=== PATIENT | female | born 1950 | race African-American/Black ===

== ENCOUNTER 2018-12-10 09:16 | Inpatient (IN) | payer OTHER | END 2018-12-12 16:18 | disposition left against medical advice (07) | LOC: YASAS 09:16 → Y6N 11:00 | DX: R01.2 Other cardiac sounds (principal); F11.20 Opioid dependence, uncomplicated ==

== ENCOUNTER 2019-01-21 10:37 | Inpatient (IN) | payer OTHER ==
[2019-01-21 11:05] VITALS: BMI 22.8
--- NOTE | 2019-01-21 12:40 | HP ---
COWS - Scale Resting Pulse: 0= [place] 80 or Below Sweatin= Chills/Flushing Restless Observation: 1= Difficult to Sit Still Pupil Size: 0= Normal to Room Light Bone or Joint Aches: 2= Severe Diffuse Aches Runny Nose/ Eye Tearin= Nasal Congestion GI Upset > 30mins: 2= Nausea/Diarrhea Tremor Observation: 2= Slight Tremor Visible Yawning Observation: 1= 1-2x During Session Anxiety or Irritability: 1=Feels Anxious/Irritable Goose Flesh Skin: 0=Smooth Skin COWS Score: 11 Admission ROS BHS - HPI Chief Complaint: I want to go back to my life when I was not using drugs Allergies/Adverse Reactions: Allergies Allergy/AdvReac Type Severity Reaction Status Date / Time atorvastatin [From Lipitor] AdvReac Intermediate muscle pain Verified 01/21/19 10:58 History of Present Illness: 68 yo woman here for detox from opiates - denies using cocaine (though urine tox + cocaine thinks mixed with heroin) and denies using alcohol. Patient here for detox 12/09/18 and left AMA but states she is sorry she did that and will complete treatment. She is in an outpatient program at [facility] receiving both psychiatric and rehab services but she still is using opiates, it was recommended she come in for detox. Not interested in methadone or suboxone. Denies overdose or black outs, no seizures. Exam Limitations: No Limitations - Ebola screening Have you traveled outside of the country in the last 21 days: No Have you had contact with anyone from an Ebola affected area: No - Review of Systems Constitutional: Chills, Loss of Appetite, Night Sweats, Changes in sleep EENT: reports: Tearing, Nose Congestion Respiratory: reports: No Symptoms reported Cardiac: reports: No Symptoms Reported GI: reports: Difficulty Swallowing, Poor Appetite, Poor Fluid Intake, Abdominal cramping : reports: No Symptoms Reported Musculoskeletal: reports: Back Pain, Muscle Pain Integumentary: reports: Other Neuro: reports: Headache, Tingling Endocrine: reports: No Symptoms Reported Hematology: reports: No Symptoms Reported Psychiatric: reports: Judgement Intact, Mood/Affect Appropiate, Anxious Other Systems: Reviewed and Negative Patient History - Patient Medical History Hx Anemia: No Hx Asthma: No Hx Chronic Obstructive Pulmonary Disease (COPD): No Hx Cancer: No Hx Cardiac Disorders: No Hx Congestive Heart Failure: No Hx Hypertension: No Hx Hypercholesterolemia: Yes (on meds) Hx Pacemaker: No HX Cerebrovascular Accident: No Hx Seizures: No Hx Diabetes: No Hx Gastrointestinal Disorders: No Hx Liver Disease: No Hx Genitourinary Disorders: No Hx Sexually Transmitted Disorders: No Hx Renal Disease (ESRD): No Hx Thyroid Disease: No Hx Human Immunodeficiency Virus (HIV): No Hx Hepatitis C: No Hx Depression: Yes (anxiety/depression sees psych on meds) Hx Suicide Attempt: Yes (in my 20's - hospitalized - slit wrists/took pills) Hx Bipolar Disorder: No Hx Schizophrenia: No Other Medical History: scoliosis, neck and back pain chronic; glaucoma - Patient Surgical History Past Surgical History: No Hx Neurologic Surgery: No Hx Cataract Extraction: Yes (bilateral 2013) Hx Cardiac Surgery: No Hx Lung Surgery: No Hx Breast Surgery: No Hx Breast Biopsy: No Hx Abdominal Surgery: Yes (ectopic ; ovarian cyst removal) Hx Appendectomy: No Hx Cholecystectomy: No Hx Genitourinary Surgery: No Hx Section: No Hx Orthopedic Surgery: Yes (back surgery not sure what kind - 1990s; two epidurals) Anesthesia Reaction: No - PPD History Previous Implant?: Yes Documented Results: Negative w/o proof Implanted On Prior [facility] Admission?: Yes PPD to be Administered?: Yes - Reproductive History Patient is a Female of Child Bearing Age (11 -55 yrs old): No - Smoking Cessation Smoking history: Current every day smoker Have you smoked in the past 12 months: Yes Aproximately how many cigarettes per day: 20 Hx Chewing Tobacco Use: No Initiated information on smoking cessation: Yes 'Breaking Loose' booklet given: 01/21/19 (give on floor) - Substance & Tx. History Hx Alcohol Use: No Hx Substance Use: Yes Substance Use Type: Heroin Hx Substance Use Treatment: Yes (detox, rehab) - Substances abused Heroin Substance route: Inhalation Frequency: Daily Amount used: 8-10 bags Age of first use: 15 Date of last use: 01/20/19 Non-Rx Methadone Substance route: Oral Frequency: 1-3 times last 30 days Amount used: 15mg Age of first use: 67 Date of last use: 01/20/19 Admission Physical Exam BHS - Vital Signs Vital Signs: Vital Signs - 24 hr 09/14/19 09/14/19 10:56 11:35 Temperature 97.2 F L 97.2 F L Pulse Rate 49 L 49 L Respiratory 18 18 Rate Blood Pressure 156/69 156/69 - Physical General Appearance: Yes: Nourished, Appropriately Dressed, Moderate Distress, Thin, Tremorous, Anxious HEENTM: Yes: EOMI, Hearing grossly Normal, Normocephalic, Normal Voice, Pharynx Normal Respiratory: Yes: Normal Breath Sounds, No Respiratory Distress Neck: Yes: No masses,lesions,Nodules, Supple Breast: Yes: Breast Exam Deferred Cardiology: Yes: Regular Rhythm, Regular Rate Abdominal: Yes: Flat, Soft Genitourinary: Yes: Within Normal Limits Back: Yes: Surgical Scar, Other (neck pain) Musculoskeletal: Yes: full range of Motion, Gait Steady, Back pain, Other (neck pain) Extremities: Yes: Normal Inspection, Non-Tender Neurological: Yes: Fully Oriented, Alert, Normal Mood/Affect, Normal Response Integumentary: Yes: Normal Color, Warm, Other (irritation right cheek area) Lymphatic: Yes: Within Normal Limits - Diagnostic (1) Opioid dependence with withdrawal Current Visit: Yes Status: Chronic (2) Chronic back pain Current Visit: Yes Status: Acute Qualifiers: Back pain location: low back pain Back pain laterality: bilateral Sciatica presence: without sciatica Qualified Code(s): M54.5 - Low back pain; G89.29 - Other chronic pain (3) Glaucoma Current Visit: Yes Status: Acute Qualifiers: Glaucoma type: unspecified Laterality: bilateral Qualified Code(s): H40.9 - Unspecified glaucoma (4) Nicotine dependence Current Visit: Yes Status: Acute Qualifiers: Nicotine product type: cigarettes Substance use status: uncomplicated Qualified Code(s): F17.210 - Nicotine dependence, cigarettes, uncomplicated (5) Substance induced mood disorder Current Visit: Yes Status: Acute (6) History of back surgery Current Visit: Yes Status: Chronic (7) Hypercholesterolemia Current Visit: Yes Status: Chronic (8) Scoliosis Current Visit: Yes Status: Chronic Qualifiers: Scoliosis type: idiopathic Spinal region: lumbar Cleared for Admission S - Detox or Rehab [facility] Level of Care: Medically Managed Detox Regimen/Protocol: Methadone Breathalyzer - Breathalyzer Breathalyzer: 0 Urine Drug Screen - Test Device Lot number: [id number] Expiration date: 05/31/21 - Control Is test valid?: Yes - Results Drug screen NEGATIVE: No Urine drug screen results: ANMOL-Cocaine, MOP-Opiates, OXY-Oxycodone, MTD- Methadone Inpatient Rehab Admission - Rehab Decision to Admit Inpatient rehab admission?: No
[2019-01-21] MEDS ORDERED: cloNIDine HCL 0.1 MG TABLET PO PRN (12:51)
[2019-01-21] MEDS ORDERED: BISMUTH SUBSALICYLATE 524 MG/30 ML UD PO PRN (12:51)
[2019-01-21] MEDS ORDERED: MAGNESIUM CITRATE 300 ML BOTTLE PO PRN (12:51)
[2019-01-21] MEDS ORDERED: MENTHOL/PHENOL 1 EACH UD MM PRN (12:51)
[2019-01-21] MEDS ORDERED: ACETAMINOPHEN 325 MG TABLET (FP) PO PRN ×2 (12:51)
[2019-01-21] MEDS ORDERED: IBUPROFEN 400 MG TABLET (FP) PO PRN (12:51)
[2019-01-21] MEDS ORDERED: MAG HYDROX/AL HYDROX/SIMETH 30 ML UNIT-DOSE CUP PO PRN (12:51)
[2019-01-21] MEDS ORDERED: MAGNESIUM HYDROX 2400MG/30ML ORAL SUSPENSION 30 ML CUP PO PRN (12:51)
[2019-01-21] MEDS ORDERED: METHOCARBAMOL 500 MG TABLET PO PRN (12:51)
[2019-01-21] MEDS ORDERED: METHADONE HCL 10 MG TABLET (FOR DETOX USE ONLY) PO ONE (13:45)
[2019-01-21] MEDS: NICOTINE 21 MG/24 HOURS TOPICAL PATCH TD SCH (14:17)
[2019-01-21] MEDS: LIDOCAINE 5% TOPICAL PATCH TP SCH (14:17)
[2019-01-21] MEDS: clonazePAM 0.5 MG TABLET PO PRN ×2 (14:25→22:11)
[2019-01-21] MEDS ORDERED: ATORVASTATIN CA 10 MG TABLET (FP) PO SCH (22:00)
[2019-01-21] MEDS ORDERED: ESCITALOPRAM OXALATE 10 MG TABLET (FP) PO ONE (22:00)
[2019-01-21] MEDS: PATIENT'S OWN MEDICATION (NON-FORMULARY) (Brimonidine Tartrate/Timolol [Combigan 0.2%-0.5% OU SCH (22:09)
[2019-01-21] MEDS: THIAMINE HCL 100 MG TABLET (FP) PO SCH (22:09)
[2019-01-21] MEDS: PATIENT'S OWN MEDICATION (NON-FORMULARY) (Simvastatin [Simvastatin] 10 MG) PO SCH (22:09)
[2019-01-21] MEDS: LIDOCAINE PATCH REMOVAL MC SCH (22:11)
[2019-01-21] MEDS: MELATONIN 5 MG TABLETS PO PRN (22:13)
[2019-01-22] MEDS ORDERED: METHADONE HCL 10 MG TABLET (FOR DETOX USE ONLY) ONE (09:42)
[2019-01-22] MEDS ORDERED: METHADONE HCL 5 MG TABLET (FOR DETOX USE ONLY) ONE (09:42)
[2019-01-22] MEDS ORDERED: METHADONE (DETOX) 20 MG, METHADONE (DETOX) 5 MG PO ONE (10:00)
--- NOTE | 2019-01-22 10:13 | CONSULT ---
[facility] Psychiatric Consult - Data Date of interview: 01/22/19 Admission source: [facility] Identifying data: Patient is a 68 year old female, without children, unemployed, domiciled, and is supported by [facility]. This is one of multiple admisssions for patient. Patient admitted to for opiate dependence. Substance Abuse History: Smoking Cessation. Smoking history: Current every day smoker. Have you smoked in the past 12 months: Yes. Aproximately how many cigarettes per day: 20. Hx Chewing Tobacco Use: No. Initiated information on smoking cessation: Yes. 'Breaking Loose' booklet given: 01/21/19 (give on floor ). - Substance & Tx. History. Hx Alcohol Use: No. Hx Substance Use: Yes. Substance Use Type: Heroin. Hx Substance Use Treatment: Yes (detox, rehab). - Substances abused. Heroin. Substance route: Inhalation. Frequency: Daily. Amount used: 8-10 bags. Age of first use: 15. Date of last use: 01/20/19. * * Non-Rx Methadone. Substance route: Oral. Frequency: 1-3 times last 30 days. Amount used: 15mg. Age of first use: 67. Date of last use: 01/20/19 Medical History: Hypercholesterolemia, back pain, scoliosis, bilateral cataract extraction in 2013, glaucoma Psychiatric History: Patient's first psychiatric contact was approximately 30 years ago after she had a suicide attempt (cutting wrist and overdose) and was admitted to [facility]. After discharged she saw an outpatient psychiatrist and was treated with zoloft but after several months she discontinued treatment. Ms. Sheffield is currently provided with outpatient psychiatric care at [facility]. She was diagnosed with depression and prescribed lexapro 10mg. At present patient denies depressive symptoms. Physical/Sexual Abuse/Trauma History: denies. Mental Status Exam - Mental Status Exam Alert and Oriented to: Time, Place, Person Cognitive Function: Good Patient Appearance: Well Groomed Mood: Euthymic Affect: Mood Congruent Patient Behavior: Cooperative Speech Pattern: Appropriate Voice Loudness: Normal Thought Process: Goal Oriented Thought Disorder: Not Present Hallucinations: Denies Suicidal Ideation: Denies Homicidal Ideation: Denies Insight/Judgement: Poor Sleep: Poorly Appetite: Fair Muscle strength/Tone: Normal Gait/Station: Normal Psychiatric Findings - Problem List ([place] 1, 2,3) (1) Depressive disorder Current Visit: Yes Status: Chronic (2) Opioid dependence with withdrawal Current Visit: Yes Status: Acute - Initial Treatment Plan Initial Treatment Plan: Psychoeducation provided. Detoxification in progress. Will order Lexapro 10mg HS. Benefits and side effects discussed. Verbal consent given.
[2019-01-22] MEDS: LIDOCAINE 5% TOPICAL PATCH TP SCH (10:16)
[2019-01-22] MEDS: PATIENT'S OWN MEDICATION (NON-FORMULARY) (Brimonidine Tartrate/Timolol [Combigan 0.2%-0.5% OU SCH ×2 (10:17→22:16)
[2019-01-22] MEDS: NICOTINE 21 MG/24 HOURS TOPICAL PATCH TD SCH (10:17)
[2019-01-22] MEDS: PRENATAL VITAMINS W/ FOLIC ACID TABLET (FP) PO SCH (10:17)
[2019-01-22] MEDS: clonazePAM 0.5 MG TABLET PO PRN ×2 (10:19→22:18)
--- NOTE | 2019-01-22 10:25 | PN ---
BHS COWS - Scale Resting Pulse: 0= [place] 80 or Below Sweatin= No chills or Flushing Restless Observation: 1= Difficult to Sit Still Pupil Size: 1= Pupils >than Normal Bone or Joint Aches: 2= Severe Diffuse Aches Runny Nose/ Eye Tearin= None GI Upset > 30mins: 0= None Tremor Observation of Outstretched Hands: 2= Slight Tremor Visible Yawning Observation: 0= None Anxiety or Irritability: 2=Irritable/Anxious Goose Flesh Skin: 0=Smooth Skin COWS Score: 8 BHS Progress Note (SOAP) Subjective: Patient c/o body aches, interrupted sleep, anxiety and mild restlessness. Objective: 01/22/19 10:24 Vital Signs Period Temp Pulse Resp BP Sys/Whaley Pulse Ox Last 24 Hr 97.2 F-98.1 F 49-60 10-18 124-156/56-88 PE alert and oriented x 3 skin warm and dry +perrla, eoms intact, pupils mildly dilated ext full rom, slight tremors visible anxious Assessment: 01/22/19 10:25 Opiod withdrawal sx Plan: continue detox labs pending monitor
[2019-01-22 10:59] LABS: ALBUMIN 2.8 g/dl (3.4-5.0); BILIRUBIN,TOTAL 0.3 mg/dL (0.2-1); BLOOD UREA NITROGEN 9.4 mg/dL (7-18); CALCIUM 8.7 mg/dL (8.5-10.1); CREATININE 0.7 mg/dL (0.55-1.3); POTASSIUM 3.8 mmol/L (3.5-5.1); TOT PROT 6.3 g/dl (6.4-8.2)
[2019-01-22 11:05] LABS: HEMATOCRIT 34.8 % (32.4-45.2); HEMOGLOBIN 11.1 GM/dL (10.7-15.3); MCH 27.7 pg (25.7-33.7); MEAN CELL VOLUME 86.7 fl (80-96); MEAN PLT VOLUME 8.6 fl (7.5-11.1); PLATELET COUNT 199 K/MM3 (134-434); RBC 4.01 M/mm3 (3.60-5.2); RDW 15.8 % (11.6-15.6); WHITE BLOOD COUNT 4.8 K/mm3 (4.0-10.0)
[2019-01-22] MEDS: CHOLECALCIFEROL (VIT D3) 1,000 UNIT (25 MCG) TABLET PO SCH (11:26)
[2019-01-22] MEDS: PATIENT'S OWN MEDICATION (NON-FORMULARY) (Simvastatin [Simvastatin] 10 MG) PO SCH (22:16)
[2019-01-22] MEDS: ESCITALOPRAM OXALATE 10 MG TABLET (FP) PO SCH (22:16)
[2019-01-22] MEDS: LIDOCAINE PATCH REMOVAL MC SCH (22:17)
[2019-01-22] MEDS: THIAMINE HCL 100 MG TABLET (FP) PO SCH (22:17)
[2019-01-23] MEDS ORDERED: COLLOIDAL OATMEAL 1 BAR EACH TP PRN (09:20)
--- NOTE | 2019-01-23 09:24 | PN ---
BHS COWS - Scale Resting Pulse: 0= [place] 80 or Below Sweatin= No chills or Flushing Restless Observation: 1= Difficult to Sit Still Pupil Size: 1= Pupils >than Normal Bone or Joint Aches: 1= Mild Discomfort Runny Nose/ Eye Tearin= Nasal Congestion GI Upset > 30mins: 1= Stomach Cramp Tremor Observation of Outstretched Hands: 1= Tremor [place], Not Seen Yawning Observation: 1= 1-2x During Session Anxiety or Irritability: 2=Irritable/Anxious Goose Flesh Skin: 0=Smooth Skin COWS Score: 9 BHS Progress Note (SOAP) Subjective: alert,irritable,anxious,interrupted sleep,pain in body Objective: 01/23/19 09:24 Vital Signs Temperature 97.9 F 01/23/19 09:09 Pulse Rate 58 L 01/23/19 09:09 Respiratory Rate 16 01/23/19 09:09 Blood Pressure 140/86 01/23/19 09:09 O2 Sat by Pulse Oximetry (%) Laboratory Last Values WBC 4.8 K/mm3 (4.0-10.0) 01/22/19 07:00 RBC 4.01 M/mm3 (3.60-5.2) 01/22/19 07:00 Hgb 11.1 GM/dL (10.7-15.3) 01/22/19 07:00 Hct 34.8 % (32.4-45.2) 01/22/19 07:00 MCV 86.7 fl (80-96) 01/22/19 07:00 MCH 27.7 pg (25.7-33.7) 01/22/19 07:00 MCHC 32.0 g/dl (32.0-36.0) 01/22/19 07:00 RDW 15.8 % (11.6-15.6) H 01/22/19 07:00 Plt Count 199 K/MM3 (134-434) 01/22/19 07:00 MPV 8.6 fl (7.5-11.1) 01/22/19 07:00 Sodium 142 mmol/L (136-145) 01/22/19 07:00 Potassium 3.8 mmol/L (3.5-5.1) 01/22/19 07:00 Chloride 105 mmol/L (98-107) 01/22/19 07:00 Carbon Dioxide 32 mmol/L (21-32) 01/22/19 07:00 Anion Gap 4 MMOL/L (8-16) L 01/22/19 07:00 BUN 9.4 mg/dL (7-18) 01/22/19 07:00 Creatinine 0.7 mg/dL (0.55-1.3) 01/22/19 07:00 Est GFR (CKD-EPI)AfAm 102.46 01/22/19 07:00 Est GFR (CKD-EPI)NonAf 88.40 01/22/19 07:00 Random Glucose 88 mg/dL (74-106) 01/22/19 07:00 Calcium 8.7 mg/dL (8.5-10.1) 01/22/19 07:00 Total Bilirubin 0.3 mg/dL (0.2-1) 01/22/19 07:00 AST 12 U/L (15-37) L 01/22/19 07:00 ALT 12 U/L (13-61) L 01/22/19 07:00 Alkaline Phosphatase 64 U/L (45-117) 01/22/19 07:00 Total Protein 6.3 g/dl (6.4-8.2) L 01/22/19 07:00 Albumin 2.8 g/dl (3.4-5.0) L 01/22/19 07:00 RPR Titer Nonreactive (NONREACTIVE) 01/22/19 07:00 Assessment: 01/23/19 09:24 withdrawal symptom Plan: continue detox methadone regimen
[2019-01-23] MEDS ORDERED: METHADONE HCL 10 MG TABLET (FOR DETOX USE ONLY) PO ONE (10:00)
[2019-01-23] MEDS: PATIENT'S OWN MEDICATION (NON-FORMULARY) (Brimonidine Tartrate/Timolol [Combigan 0.2%-0.5% OU SCH ×2 (10:23→22:12)
[2019-01-23] MEDS: NICOTINE 21 MG/24 HOURS TOPICAL PATCH TD SCH (10:23)
[2019-01-23] MEDS: PRENATAL VITAMINS W/ FOLIC ACID TABLET (FP) PO SCH (10:24)
[2019-01-23] MEDS: LIDOCAINE 5% TOPICAL PATCH TP SCH (10:24)
[2019-01-23] MEDS: AMMONIUM LACTATE 12% LOTION 225 GM BOTTLE TP SCH ×2 (10:38→22:13)
[2019-01-23] MEDS: CHOLECALCIFEROL (VIT D3) 1,000 UNIT (25 MCG) TABLET PO SCH (10:53)
[2019-01-23] MEDS: clonazePAM 0.5 MG TABLET PO PRN (11:42)
[2019-01-23] MEDS: ESCITALOPRAM OXALATE 10 MG TABLET (FP) PO SCH (22:12)
[2019-01-23] MEDS: THIAMINE HCL 100 MG TABLET (FP) PO SCH (22:12)
[2019-01-23] MEDS: PATIENT'S OWN MEDICATION (NON-FORMULARY) (Simvastatin [Simvastatin] 10 MG) PO SCH (22:13)
[2019-01-23] MEDS: LIDOCAINE PATCH REMOVAL MC SCH (22:13)
[2019-01-23] MEDS: MELATONIN 5 MG TABLETS PO PRN (22:14)
[2019-01-24] MEDS: clonazePAM 0.5 MG TABLET PO PRN ×2 (05:22→18:31)
[2019-01-24] MEDS: TRIMETHOBENZAMIDE HCL 200MG/2ML INJ IM PRN ×2 (08:40→17:26)
[2019-01-24] MEDS ORDERED: METHADONE DETOX 10 MG/1 ML [20ML VIAL] IM ONE (09:01)
[2019-01-24] MEDS ORDERED: METHADONE (DETOX) 10 MG, METHADONE (DETOX) 5 MG PO ONE (10:00)
[2019-01-24] MEDS ORDERED: DICYCLOMINE HCL 10 MG CAPSULE PO PRN (10:02)
--- NOTE | 2019-01-24 10:07 | PN ---
BHS COWS - Scale Resting Pulse: 0= [place] 80 or Below Sweatin= Chills/Flushing Restless Observation: 0= Sits Still Pupil Size: 0= Normal to Room Light Bone or Joint Aches: 2= Severe Diffuse Aches Runny Nose/ Eye Tearin= Nasal Congestion GI Upset > 30mins: 2= Nausea/Diarrhea Tremor Observation of Outstretched Hands: 2= Slight Tremor Visible Yawning Observation: 0= None Anxiety or Irritability: 2=Irritable/Anxious Goose Flesh Skin: 0=Smooth Skin COWS Score: 10 BHS Progress Note (SOAP) Subjective: sweats nausea vomiting Objective: 01/24/19 10:05 Vital Signs Temperature 97.9 F 01/24/19 09:01 Pulse Rate 55 L 01/24/19 09:01 Respiratory Rate 20 01/24/19 09:01 Blood Pressure 159/71 01/24/19 09:01 O2 Sat by Pulse Oximetry (%) Laboratory Tests 01/22/19 01/22/19 01/22/19 07:00 07:00 07:00 WBC 4.8 RBC 4.01 Hgb 11.1 Hct 34.8 MCV 86.7 MCH 27.7 MCHC 32.0 RDW 15.8 H Plt Count 199 MPV 8.6 Sodium 142 Potassium 3.8 Chloride 105 Carbon Dioxide 32 Anion Gap 4 L BUN 9.4 Creatinine 0.7 Est GFR (CKD-EPI)AfAm 102.46 Est GFR (CKD-EPI)NonAf 88.40 Random Glucose 88 Calcium 8.7 Total Bilirubin 0.3 AST 12 L ALT 12 L Alkaline Phosphatase 64 Total Protein 6.3 L Albumin 2.8 L RPR Titer Nonreactive labs noted aaox3 ambulating no acute distress Assessment: 01/24/19 10:05 withdrawals sx Plan: methadone 7.5mg IM x one ordered tigan IM prn zofran SL prn
[2019-01-24] MEDS: AMMONIUM LACTATE 12% LOTION 225 GM BOTTLE TP SCH ×2 (10:38→22:40)
[2019-01-24] MEDS: PRENATAL VITAMINS W/ FOLIC ACID TABLET (FP) PO SCH (10:39)
[2019-01-24] MEDS: PATIENT'S OWN MEDICATION (NON-FORMULARY) (Brimonidine Tartrate/Timolol [Combigan 0.2%-0.5% OU SCH ×2 (10:39→22:40)
[2019-01-24] MEDS: NICOTINE 21 MG/24 HOURS TOPICAL PATCH TD SCH (10:39)
[2019-01-24] MEDS: LIDOCAINE 5% TOPICAL PATCH TP SCH (10:39)
[2019-01-24] MEDS: CHOLECALCIFEROL (VIT D3) 1,000 UNIT (25 MCG) TABLET PO SCH (10:40)
[2019-01-24] MEDS: ONDANSETRON *ODT* 4 MG TABLET SL PRN ×2 (12:51→21:59)
[2019-01-24] MEDS: MELATONIN 5 MG TABLETS PO PRN (22:41)
[2019-01-24] MEDS: PATIENT'S OWN MEDICATION (NON-FORMULARY) (Simvastatin [Simvastatin] 10 MG) PO SCH (22:42)
[2019-01-24] MEDS: THIAMINE HCL 100 MG TABLET (FP) PO SCH (22:42)
[2019-01-24] MEDS: ESCITALOPRAM OXALATE 10 MG TABLET (FP) PO SCH (22:43)
[2019-01-24] MEDS: LIDOCAINE PATCH REMOVAL MC SCH (22:43)
[2019-01-25] MEDS: TRIMETHOBENZAMIDE HCL 200MG/2ML INJ IM PRN (01:26)
--- NOTE | 2019-01-25 09:34 | PN ---
S CIWA - CIWA Score Nausea/Vomitin-Mild Nausea/No Vomiting Muscle Tremors: 1-None Visible, but Walling Anxiety: 2 Agitation: 2 Paroxysmal Sweats: No Perspiration Orientation: 0-Oriented Tacttile Disturbances: 1-Very Mild Itch/Numbness Auditory Disturbances: 0-None Visual Disturbances: 0-None Headache: 1-Very Mild CIWA-Ar Total Score: 8 BHS Progress Note (SOAP) Subjective: alert,irritable,anxious,interrupted sleep,nausea,vomiting yesterday Objective: 01/25/19 09:32 Vital Signs Temperature 98.4 F 01/25/19 09:04 Pulse Rate 57 L 01/25/19 09:04 Respiratory Rate 18 01/25/19 09:04 Blood Pressure 168/78 01/25/19 09:04 O2 Sat by Pulse Oximetry (%) Assessment: 01/25/19 09:33 withdrawal symptom Plan: continue detox methadone regimen,discharge in am
[2019-01-25] MEDS ORDERED: METHADONE HCL 10 MG TABLET (FOR DETOX USE ONLY) PO ONE (10:00)
[2019-01-25] MEDS: LIDOCAINE 5% TOPICAL PATCH TP SCH (11:05)
[2019-01-25] MEDS: PRENATAL VITAMINS W/ FOLIC ACID TABLET (FP) PO SCH (11:05)
[2019-01-25] MEDS: NICOTINE 21 MG/24 HOURS TOPICAL PATCH TD SCH (11:05)
[2019-01-25] MEDS: CHOLECALCIFEROL (VIT D3) 1,000 UNIT (25 MCG) TABLET PO SCH (11:05)
[2019-01-25] MEDS: PATIENT'S OWN MEDICATION (NON-FORMULARY) (Brimonidine Tartrate/Timolol [Combigan 0.2%-0.5% OU SCH ×2 (11:09→23:06)
[2019-01-25] MEDS: AMMONIUM LACTATE 12% LOTION 225 GM BOTTLE TP SCH ×2 (11:09→23:02)
[2019-01-25] MEDS: ONDANSETRON *ODT* 4 MG TABLET SL PRN (11:40)
--- NOTE | 2019-01-25 18:32 | PN ---
[facility] Progress Note Note: Patient c/o continued nausea and vomiting. No diarrhea. States feels sick. Patient also requesting increase in sleep medication. Alert. Abd S/NT/ND/BS+ Pupils = 3 mm. + mild tremors of hands Lungs CTA. Vital Signs - 24 hr 01/24/19 01/25/19 01/25/19 20:55 00:30 06:00 Temperature 98.4 F 98.1 F Pulse Rate 69 74 Respiratory 18 18 18 Rate Blood Pressure 176/78 H 106/61 01/25/19 01/25/19 01/25/19 09:04 12:58 16:39 Temperature 98.4 F 97.9 F 97.9 F Pulse Rate 57 L 61 69 Respiratory 18 18 16 Rate Blood Pressure 168/78 152/79 158/85 Assessment: Protracted opiate withdrawal Plan: Extend methadone taper. Will consider a split dose for tomorrow. Discuss w/ patient and counselor rehab admission for minimum of 7 days.
[2019-01-25] MEDS ORDERED: METHADONE HCL 5 MG TABLET PO ONE (18:43)
[2019-01-25] MEDS ORDERED: PROCHLORPERAZINE MALEATE 5 MG TABLET PO PRN (18:44)
[2019-01-25] MEDS ORDERED: MELATONIN 5 MG TABLETS PO PRN (18:58)
[2019-01-25] MEDS: ESCITALOPRAM OXALATE 10 MG TABLET (FP) PO SCH (23:02)
[2019-01-25] MEDS: LIDOCAINE PATCH REMOVAL MC SCH (23:02)
[2019-01-25] MEDS: THIAMINE HCL 100 MG TABLET (FP) PO SCH (23:03)
[2019-01-25] MEDS: PATIENT'S OWN MEDICATION (NON-FORMULARY) (Simvastatin [Simvastatin] 10 MG) PO SCH (23:03)
[2019-01-26] MEDS ORDERED: METHADONE HCL 5 MG TABLET PO ONE ×2 (06:00→18:00)
[2019-01-26] MEDS ORDERED: METHADONE HCL 5 MG TABLET (FOR DETOX USE ONLY) PO ONE ×2 (06:00→10:00)
--- NOTE | 2019-01-26 08:37 | DS ---
[facility] Detox Discharge Summary Admission Date: 01/21/19 Discharge Date: 01/26/19 - History Present History: Opioid Dependence - Physical Exam Results Vital Signs: Vital Signs Temperature 97.5 F L 01/26/19 05:57 Pulse Rate 88 01/26/19 05:57 Respiratory Rate 18 01/26/19 05:57 Blood Pressure 155/99 01/26/19 05:57 O2 Sat by Pulse Oximetry (%) Pertinent Admission Physical Exam Findings: pt arrived in withdrawals Laboratory Tests 01/22/19 01/22/19 01/22/19 07:00 07:00 07:00 WBC 4.8 RBC 4.01 Hgb 11.1 Hct 34.8 MCV 86.7 MCH 27.7 MCHC 32.0 RDW 15.8 H Plt Count 199 MPV 8.6 Sodium 142 Potassium 3.8 Chloride 105 Carbon Dioxide 32 Anion Gap 4 L BUN 9.4 Creatinine 0.7 Est GFR (CKD-EPI)AfAm 102.46 Est GFR (CKD-EPI)NonAf 88.40 Random Glucose 88 Calcium 8.7 Total Bilirubin 0.3 AST 12 L ALT 12 L Alkaline Phosphatase 64 Total Protein 6.3 L Albumin 2.8 L RPR Titer Nonreactive today pt is aaox3 ambulating no acute distress - Treatment Hospital Course: Detox Protocol Followed, Detoxed Safely, Responded well, Discharged Condition Good, Rehab Referral Accepted Patient has Accepted a Rehab Referral to: referred to [facility] - Medication Discharge Medications: Ambulatory Orders Brimonidine Tartrate/Timolol [Combigan Eye Drops] 1 drop OU BID 12/10/18 Cholecalciferol (Vitamin D3) [Vitamin D3] 1,000 unit PO DAILY 12/10/18 Simvastatin 10 mg PO HS 12/10/18 Escitalopram Oxalate [Lexapro -] 10 mg PO HS 01/21/19 - Diagnosis (1) Chronic back pain Current Visit: Yes Status: Chronic Qualifiers: Back pain location: low back pain Back pain laterality: bilateral Sciatica presence: without sciatica Qualified Code(s): M54.5 - Low back pain; G89.29 - Other chronic pain (2) Glaucoma Current Visit: Yes Status: Acute Qualifiers: Glaucoma type: unspecified Laterality: bilateral Qualified Code(s): H40.9 - Unspecified glaucoma (3) Nicotine dependence Current Visit: Yes Status: Acute Qualifiers: Nicotine product type: cigarettes Substance use status: uncomplicated Qualified Code(s): F17.210 - Nicotine dependence, cigarettes, uncomplicated (4) Opioid dependence with withdrawal Current Visit: Yes Status: Chronic (5) Substance induced mood disorder Current Visit: Yes Status: Acute (6) Depressive disorder Current Visit: Yes Status: Chronic (7) History of back surgery Current Visit: Yes Status: Chronic (8) Hypercholesterolemia Current Visit: Yes Status: Chronic (9) Scoliosis Current Visit: Yes Status: Chronic Qualifiers: Scoliosis type: idiopathic Spinal region: lumbar - AMA Did Patient Leave Against Medical Advice: No
[2019-01-26 09:18] VITALS: BP 158/100; PULSE 87; TEMP 97.7
--- NOTE | 2019-01-26 09:54 | PN ---
[facility] Progress Note Note: pt states she is not feeling well and feels weak, lethargic and sickly. Pt received her last dose of 5mg of methadone this am. pt will be sent out to our ED at [place] for evaluation. report given to Dr. Yoo. pt was also make aware that today is her discharge and if ED clears her she can go home and when she is ready she can go to rehab afterwards. pt in agreement.
[2019-01-26] MEDS: clonazePAM 0.5 MG TABLET PO PRN (10:08)
[2019-01-26] MEDS: AMMONIUM LACTATE 12% LOTION 225 GM BOTTLE TP SCH (10:15)
[2019-01-26] MEDS: LIDOCAINE 5% TOPICAL PATCH TP SCH (10:15)
[2019-01-26] MEDS ORDERED: cloNIDine HCL 0.1 MG TABLET PO ONE (10:15)
[2019-01-26] MEDS: CHOLECALCIFEROL (VIT D3) 1,000 UNIT (25 MCG) TABLET PO SCH (10:15)
[2019-01-26] MEDS: PRENATAL VITAMINS W/ FOLIC ACID TABLET (FP) PO SCH (10:15)
[2019-01-26] MEDS: NICOTINE 21 MG/24 HOURS TOPICAL PATCH TD SCH (10:15)
[2019-01-26] MEDS: PATIENT'S OWN MEDICATION (NON-FORMULARY) (Brimonidine Tartrate/Timolol [Combigan 0.2%-0.5% OU SCH (11:42)
[2019-01-27] MEDS ORDERED: METHADONE HCL 5 MG TABLET PO SCH (06:00)
== END 2019-01-26 10:15 | disposition short-term general hospital (02) | DRG 897 ==
LOC: YASAS 10:37 → Y6N 13:05
PROVIDERS: ADMIT Surgery; ATTEND Surgery
PROC: HZ2ZZZZ Detoxification Services for Substance Abuse Treatment (ICD-10-PCS; principal; 2019-01-21)
DX: F11.23 Opioid dependence with withdrawal (principal); F17.210 Nicotine dependence, cigarettes, uncomplicated; F19.24 Other psychoactive substance dependence with psychoactive substance-induced mood disorder; F32.9 Major depressive disorder, single episode, unspecified; E78.00 Pure hypercholesterolemia, unspecified; M41.20 Other idiopathic scoliosis, site unspecified; M54.5 Low back pain; G89.29 Other chronic pain; H40.9 Unspecified glaucoma; R53.83 Other fatigue; R53.1 Weakness; Z91.5 Personal history of self-harm
CPT/HCPCS: 36415; 71045-TC-FY; 80053; 82550; 82553; 83605; 83690; 83880; 84484; 85025; 85027; 85610; 86593; 93005; 93010; 99285-25; J0735; J1644; Q0162

== ENCOUNTER 2019-01-26 10:53 | Emergency (ER) | payer OTHER | END 2019-01-26 12:34 | disposition short-term general hospital (02) | LOC: JER 10:53 ==